=== PATIENT | male | born 1940 | race Caucasian/White ===

== ENCOUNTER → 2019-01-17 | Outpatient (REF) | payer MEDICARE, OTHER | LOC: M SFHCCLAY 16:07 | PROVIDERS: ATTEND Family Medicine | DX: R35.0 Frequency of micturition (principal) ==

== ENCOUNTER → 2021-02-17 | Outpatient (CLI) | payer MEDICARE ==
--- NOTE | 2021-02-17 11:50 | REP ---
INDICATION: R06.02 COMPARISON: None. TECHNIQUE: PA/Lateral FINDINGS: There is right upper lobe infiltrate anteriorly. There are underlying emphysematous and fibrotic changes bilaterally. There is mild cardiomegaly. There is calcification of the thoracic aorta. The mediastinal silhouette appears unremarkable. There are multiple sternal wires present as well as a prosthetic heart valve. Left dual lead pacemaker is noted. There is osteopenia with mild degenerative changes of the spine. IMPRESSION: Right upper lobe infiltrate recommend follow-up to resolution. <Electronically signed by Noah Hicks > 02/17/21 [id number]
== END ==
LOC: M CLY 11:18
PROVIDERS: ATTEND Physician Assistant
DX: R91.8 Other nonspecific abnormal finding of lung field (principal); I51.7 Cardiomegaly; M85.88 Other specified disorders of bone density and structure, other site; R06.02 Shortness of breath; Z95.0 Presence of cardiac pacemaker
CPT/HCPCS: 71046; 87426; G0463

== ENCOUNTER → 2021-02-17 | Outpatient (REF) | payer MEDICARE | LOC: M SFHCCLAY 11:10 | PROVIDERS: ATTEND Physician Assistant | DX: R05 Cough (principal) ==

== ENCOUNTER → 2021-03-13 | Outpatient (CLI) | payer MEDICARE ==
--- NOTE | 2021-03-13 11:25 | REP ---
INDICATION: PNEUMONIA OF RIGHT UPPER LOBE COMPARISON: 02/17/2021 TECHNIQUE: PA and lateral. FINDINGS: The mediastinum and cardiac silhouette are stable with mild cardiomegaly, pacemaker, valve repair, and sternotomy. Lung menon demonstrate advanced COPD/emphysematous changes. Previously noted infiltrate in the basilar right upper lobe appears to have near completely resolved. No new acute process identified. No effusion. No pneumothorax. IMPRESSION: Chronic stable changes. Essentially near complete resolution to the previously noted basilar right upper lobe infiltrate. <Electronically signed by Rodriguez Wen > 03/13/21 [id number]
== END ==
LOC: M CLY 10:42
PROVIDERS: ATTEND Family Medicine
DX: J18.9 Pneumonia, unspecified organism (principal)

== ENCOUNTER → 2022-02-18 | Outpatient (REF) | payer MEDICARE | LOC: M SFHCCLAY 11:00 | PROVIDERS: ATTEND Family Medicine | DX: J18.9 Pneumonia, unspecified organism (principal); I48.91 Unspecified atrial fibrillation; J44.9 Chronic obstructive pulmonary disease, unspecified; Z79.01 Long term (current) use of anticoagulants ==

== ENCOUNTER → 2022-03-09 | Outpatient (CLI) | payer MEDICARE | LOC: M CLY 15:29 | PROVIDERS: ATTEND Family Medicine | DX: J18.9 Pneumonia, unspecified organism (principal) ==

== ENCOUNTER → 2022-05-21 | Outpatient (CLI) | payer MEDICARE | LOC: M PLARAD 13:38 | PROVIDERS: ATTEND Physician Assistant | DX: R91.1 Solitary pulmonary nodule (principal) | CPT/HCPCS: 78815; A9552 ==